=== PATIENT | male | born 1985 | race Caucasian/White ===

== ENCOUNTER 2023-06-13 09:40 | Outpatient (AMB) | payer MEDICAID, SELFPAY ==
--- NOTE | 2023-06-13 09:54 | MHC.AMNUTRGE ---
Intake VS Expanded 06/13/23 11:02 06/20/23 08:36 Height 5 ft 6 in 5 ft 6 in Weight 104 lb 0.7 oz 104 lb BMI 16.8 16.8 Intake Visit Reasons: Osteoporosis-CONFIRMED HPI Nutrition Presentation Details Pt presents for Nutrition Consult Pt on Jtube feeding with BMI at 16.8. Pt resides at [facility] and is accompanied by a staff Pt was referred by Dr. Minnie Serrano from [facility]. The Patient has cerebral palsy, non verbal, spastic quadriplegia, scoliosis, bronchopulmonary dysplasia , chronic GJ tube, chronic hypoxic respiratory failure due to aspiration, mixed incontinence. Pt has Aminata -Garcia syndrome with GI bleed, severe gastric dysmotility (information extracted from referring physician notes and notes from nutrition from [facility] on 03/25/23. Discussion via Telephone with Kim nurse from [facility] and paper note from [facility] the Pt is NPO due to risk of aspiration. Pt is getting his nutrition via J- tube as follows: Nutren 2.0 at 50 ml/hr for 20 hours. Pt is also getting 150 ml water flush every 2 hours (12 times a day) and 50 ml of water before and after each feeding via J-tube. Current feeding provides 2000 slim/day, 84 g of protein/d, total of 2490 ml of water/day (690 ml water from formula 1800 ml of water flushes/day) . Pt's weight hx wt in 02/07/2019 ([facility] notes) at 116 lbs on feedings : 2 slim HN at 50 ml/hr x 20 hr per day wt on 03/25/23 54.1 kg (119 lbs) ( nutrition notes from [facility] on bed scale) wt as per notes from [facility] 104.7 lbs on 06/04/23 on same 2 slim HN at 50 ml x20 hr per day Pt having recurrent clogged J-tube Nutrition Needs Calculation Weight 104 lb Estimated kcal needs (kcal/day) 1,844 (as per 11 kcal /cm (Pt 's Ht at 5'6 )) Estimated protein needs (gm/day) 57 (1-1.2 g/kg BW) Estimated fluid needs (mls/day) 2,040 (asper HoliaySegar) MYI-Trnodqk-PyVidalor Equation Height 5 ft 6 in Diagnosis Nutrition problem #1 other (GI Intolerance to ) As related to (etiology) #1 other (standard formula) As evidenced by (sign/symptom) #1 other (by gastric dysmotility, hx of GI bleed, low BMI at 16.8 ) Monitoring/Goals Monitoring/Goals details Switch to semi elemental formula Peptamen 1.5 and monitor weight gain Most Recent Diabetes Results: No Data to Display Assessment & Plan Assessment & Plan (1) Cerebral palsy: Comment: BMI at 16.8 Code(s): G80.9 - Cerebral palsy, unspecified Plan: Recommend switching to PEPTAMEN 1.5 (a semi elemental/peptide based formula) via J- Tube continuously Initial RATE of 35 ML /HR for 20 HR per day ( total of 700 ml/d) and 50 ml of water flushes every 2 hr as established (12 times a day) Advance by 10 ml per hour for 20 hours every 3 days to goal of 60 ml /hr for 20 hours/day (1200 ml/d) and advance water flushes by 10 ml every 2 hours (12 times/day ) to goal of 90 ml water flushes every 2 hours (12 times/day) Provide 30 ml of water via J Tube before and after each feeding. This will provide 1800 calories , 81.6 g protein, 2004 ml total water/d (924 ml water from formula and 1080 ml water flushes) Check for tolerance and monitor weight every 2 weeks Do not check residuals for J-Tube (2) Underweight: Code(s): R63.6 - Underweight Patient Instructions: Recommend switching to PEPTAMEN 1.5 (a semi elemental/peptide based formula) via J- Tube continuously . See Initiation instructions under Plan. Coding Level of Care Code Nutr Indiv Intake (75729) Diagnoses Cerebral palsy G80.9 Underweight R63.6 Time Spent (min) 30
[2023-06-13 11:02] VITALS: BMI 16.8
[2023-06-13 11:16] VITALS: BMI 16.8
== END 2023-06-13 10:13 | disposition home or self-care (01) ==
PROVIDERS: PCP Internal Medicine; Visit Provider Dietitian, Registered
DX: G80.9 Cerebral palsy, unspecified (principal); R63.6 Underweight

== ENCOUNTER → 2023-06-13 09:40 | Outpatient (BNVA) | payer MEDICARE, MEDICAID, SELFPAY | PROVIDERS: Visit Provider Dietitian, Registered | DX: G80.9 Cerebral palsy, unspecified (principal); R63.6 Underweight | CPT/HCPCS: 97802 ==

== ENCOUNTER 2023-12-04 11:14 | Outpatient (AMB) | payer MEDICARE, MEDICAID, SELFPAY ==
--- NOTE | 2023-12-04 11:21 | MHC.AMNUTRGE ---
Intake VS Expanded 12/04/23 11:43 Height 5 ft 6 in Weight 103 lb 0.2 oz BMI 16.6 Intake Visit Reasons: dysphagia/tube feeding status/CONFIRMED HPI Nutrition Presentation Details Pt presents for Nutrition follow up on Jtube feedings tolerance . Pt was referred by Dr. Minnie Serrano from [facility]. Pt is a resident of [facility] and is accompanied by a staff during this appt. Pt has hx of gastric dysmotility, hx of GI bleed Pt is currently on Peptamen 1.5 at 60 ml/hr for 20 hours a day via Jejunostomy tube Pt is also getting 50 ml water flushes before and after each feeding and whenever the feeding is interrupted. May get about 2000 ml water /day. Pt has Gtube placed and gets medications via G tube only. Staff reports Pt has no vomiting, has daily regular bowel movement. Pt 's skin looks radiant. Staff reports Pt has frequent urination, every 2-3 hours Pt appears to tolerate formula, with regular bowel movement, and weight has maintained, Staff reports no known wounds, ulcers, no vomiting Pt was previously on Nutren 2.0 at 50 ml/hr for 20 hr/d having bowel incontinence , BMI at 16.8 on 06/2023. and appears to tolerate peptamen 1.5 formula better, weight is maintaining , will need increase calories to promote weight gain Hx from previous appt 2022 Pt with hx of hypoxic respiratory failure due to aspiration. Pt has Aminata -Garcia syndrome with GI bleed, severe gastric dysmotility (information extracted from referring physician notes and notes from nutrition from [facility] on 03/25/23. Pt Consult Pt on Jtube feeding with BMI at 16.8. Pt resides at [facility] and is accompanied by a staff Pt was referred by Dr. Minnie Serrano from [facility]. Discussion via Telephone with nurse Kim from [facility] and paper note from [facility] the Pt is NPO due to risk of aspiration. Pt is getting his nutrition via J- tube as follows: Nutren 2.0 at 50 ml/hr for 20 hours. Pt is also getting 150 ml water flush every 2 hours (12 times a day) and 50 ml of water before and after each feeding via J-tube. Pt's weight hx wt in 02/07/2019 ([facility] notes) at 116 lbs on feedings : 2 slim HN at 50 ml/hr x 20 hr per day wt on 03/25/23 54.1 kg (119 lbs) ( nutrition notes from [facility] on bed scale) wt as per notes from [facility] 104.7 lbs on 06/04/23 on same 2 slim HN at 50 ml x20 hr per day Pt having recurrent clogged J-tube Assessment Assessment details Pt is currently getting Peptamen 1.5 total 1800 calories/day (1200 ML per day) . Pt weight has maintained at BMI 16.6 and per conversation with staff, Pt is having a daily regular bowel movement, no diarrhea. Pt will need higher calorie intake to promote weight gain [employer] vol of Peptamen 1.5 at 75 ml/hr for 20 hours (total of 1500 ml/day) Nutrition Needs Calculation Weight 103 lb (47 kg) Estimated kcal needs (kcal/day) 2,300 (current 1800 + 500 calories for wt gain) Estimated protein needs (gm/day) 56 (1.2-1.5 g of protein per kg BW (56-70g)) Estimated fluid needs (mls/day) 2,040 (as per Mulugeta Marcos ) Most Recent Diabetes Results: No Data to Display Assessment & Plan Assessment & Plan (1) Cerebral palsy: Comment: BMI at 16.8 (06/2023), BMI at 16.6 (11/2023) Code(s): G80.9 - Cerebral palsy, unspecified Plan: Continue on Peptamen 1.5 via Jtube and gradually increase volume as follows , assessing for tolerance and advancing to goal to promote weight gain: Day 1-2: Provide 50 ML water flush BEFORE and AFTER feeds, then run Peptamen 1.5 feeds at 65 ML X 20 HR/d (total of 1300 ML) Provide 940 ml additional water distributed throughout the day ( can be used for flushing J tube, G- tube and meds via Gtube) Day 3 Gaol: Provide 50 ML water flushes BEFORE and AFTER feeds, then run Peptamen 1.5 feeds at 75 ML X 20 HR (1500 ML/g) Provide 885 ml additional water throughout the day ( can be used for flushing J tube, G- tube and meds via G-tube) Check for GI tolerance, monitor weight, frequency of bowel movement, symptoms of dehydration This will provide 2300 calories/day, 102 g of protein, 2040 ml of water per day Do not check residuals for J-Tube (2) Underweight: Code(s): R63.6 - Underweight Plan: Continue on Peptamen 1.5 via Jtube and gradually increase volume as follows , assessing for tolerance and advancing to goal to promote weight gain: Day 1-2: Provide 50 ML water flush BEFORE and AFTER feeds, then run Peptamen 1.5 feeds at 65 ML X 20 HR/d (total of 1300 ML) Provide 940 ml additional water distributed throughout the day ( can be used for flushing J tube, G- tube and meds via Gtube) Day 3 Gaol: Provide 50 ML water flushes BEFORE and AFTER feeds, then run Peptamen 1.5 feeds at 75 ML X 20 HR (1500 ML/g) Provide 885 ml additional water throughout the day ( can be used for flushing J tube, G- tube and meds via G-tube) This will provide 2300 calories/day (1500 ML/D), 102 g of protein, 2040 ml of water per day, no fiber Do not check residuals for J-Tube Check for GI tolerance, monitor weight, frequency of bowel movement, symptoms of dehydration RECOMMEND MONITORING for Zinc def , B vitamin def, calcium, iron def Patient Instructions: See plan as above to increase calorie by gradually increasing volume. Next follow up will assess adding fiber to feeds Please forward nutrition labs results (H/H, Chol, iron, zinc, Ca, b vitamins) Coding Level of Care Code Nutr Indiv Subseq ([id number]) Diagnoses Cerebral palsy G80.9 Underweight R63.6 Time Spent (min) 30
[2023-12-04 11:43] VITALS: BMI 16.6
== END 2023-12-04 11:42 | disposition home or self-care (01) ==
PROVIDERS: PCP Internal Medicine; Visit Provider Dietitian, Registered
DX: G80.9 Cerebral palsy, unspecified (principal); R63.6 Underweight

== ENCOUNTER → 2023-12-04 11:14 | Outpatient (BNVA) | payer MEDICARE, MEDICAID, SELFPAY | PROVIDERS: PCP Internal Medicine; Visit Provider Dietitian, Registered | DX: G80.9 Cerebral palsy, unspecified (principal); R63.6 Underweight; Z71.3 Dietary counseling and surveillance; Z93.1 Gastrostomy status; Z68.1 Body mass index [BMI] 19.9 or less, adult | CPT/HCPCS: 97803 ==

== ENCOUNTER 2023-12-30 10:57 | Outpatient (AMB) | payer MEDICARE, MEDICAID, SELFPAY ==
--- NOTE | 2023-12-30 10:51 | A.OFFVIS_ITS ---
Intake VS Expanded 12/31/23 11:03 Height 5 ft 6 in Weight 106 lb 0.2 oz BMI 17.1 Intake Visit Reasons: tube feeding tolerance/Telephone call/CONFIRMED HPI Nutrition Presentation Details MNT f/u for tube feeding tolerance via telephone visit Pt was previously on Peptamen 1.5 via J tube at 60 ml x 20 hr/day (total 1200 ML/day) providing 1800 calories per day and 81 g of protein, tolerating formula with improvement in lessening diarrhea and maintaining weight but not gaining weight. The rate of formula was increased to 75 ml x 20 hr/day to promote weight gain and per nursing Pt is doing better and gradually gaining weight. Nursing reports: Pt is on Peptamen 1.5 feeds at 75 ML X 20 HR (1500 ML/g) via J- tube Getting 50 ML water flushes BEFORE and AFTER feeds and add itional 885 ml additional water distributed throughout the day ( can be used for flushing J tube, G- tube and meds via G-tube ) Pt tolerating formula well, no concerns expressed at this time. Weight is monitored weekly and weight gain progress is a s follows: 12/09/2023 at 103.8 lbs 12/16/2023 at 104.2 lbs 12/23/2023 at 105.7 lbs 12/30/2023 at 106.2 lbs No concerns expressed at this time. Most Recent Diabetes Results: No Data to Display Assessment & Plan Assessment & Plan (1) Cerebral palsy: Comment: BMI at 16.8 (06/2023), BMI at 16.6 (11/2023), BMI at 17.1 on 12/2023) Code(s): G80.9 - Cerebral palsy, unspecified Plan: Continue on Peptamen 1.5 via Jtube as established Provide 50 ML water flushes BEFORE and AFTER feeds, then run Peptamen 1.5 feeds at 75 ML X 20 HR (1500 ML/d) Provide 885 ml additional water throughout the day ( can be used for flushing J tube, G- tube and meds via G-tube), not exceed 125 ml/hour via Jtube This is providing 2300 calories/day, 102 g of protein, 2040 ml of water per day Check for GI tolerance, monitor weight, frequency of bowel movement, symptoms of dehydration Do not check residuals for J-Tube (2) Underweight: Comment: BMI at 16.8 (06/2023), BMI at 16.6 (11/2023), BMI at 17.1 on 12/2023) Code(s): R63.6 - Underweight Plan: Continue on Peptamen 1.5 via Jtube as established Provide 50 ML water flushes BEFORE and AFTER feeds, then run Peptamen 1.5 feeds at 75 ML X 20 HR (1500 ML/d) Provide 885 ml additional water throughout the day ( can be used for flushing J tube, G- tube and meds via G-tube) , not to exceed 125 ml/hr via Jtube This provides 2300 calories/day (1500 ML/D), 102 g of protein, 2040 ml of water per day, no fiber , with gradual weight gain Do not check residuals for J-Tube Check for GI tolerance, monitor weight, frequency of bowel movement, symptoms of dehydration RECOMMEND MONITORING for Zinc def , B vitamin def, calcium, iron def Patient Instructions: Continue feeds as established : Peptamen 1.5 feeds at 75 ML X 20 HR (1500 ML/d) via J- tube Provide 50 ML water flushes BEFORE and AFTER feeds Provide 885 ml additional water throughout the day ( can be used for flushing J tube, G- tube and meds via G-tube) , not to exceed 125 ml/hr via Jtube Continue monitoring weight , will follow up in 3 months on weight progress. Telehealth Telehealth Telehealth Platform: Telephone Location of provider rendering services: practice address Location of patient: address on file Patient Identification confirmed using: Name, : Yes Telehealth method: voice only Patient verbally consented to treatment: Yes Patient verbally consented to billing insurance company: Yes Patient informed of any privacy concerns related to visit: Yes Minutes spent on Phone/Video with Pt.: 15 Coding Level of Care Code Nutr Indiv Subseq ([id number]) Diagnoses Cerebral palsy G80.9 Underweight R63.6 Time Spent (min) 20
[2023-12-31 11:03] VITALS: BMI 17.1
== END 2023-12-30 11:35 | disposition home or self-care (01) ==
LOC: HO.ENCR 10:57
PROVIDERS: PCP Internal Medicine; Visit Provider Dietitian, Registered
DX: G80.9 Cerebral palsy, unspecified (principal); R63.6 Underweight

== ENCOUNTER → 2023-12-30 10:57 | Outpatient (BNVA) | payer MEDICARE, MEDICAID, SELFPAY | PROVIDERS: PCP Internal Medicine; Visit Provider Dietitian, Registered | DX: G80.9 Cerebral palsy, unspecified (principal); R63.6 Underweight; Z68.1 Body mass index [BMI] 19.9 or less, adult | CPT/HCPCS: 97803 ==

== ENCOUNTER 2024-04-06 11:09 | Outpatient (AMB) | payer MEDICARE, MEDICAID, SELFPAY ==
[2024-04-06 11:33] VITALS: BMI 17.4
--- NOTE | 2024-04-06 11:33 | A.OFFVIS_ITS ---
VS Expanded 04/06/24 11:33 Height 5 ft 6 in Weight 108 lb BMI 17.4 Intake Visit Reasons: J tube feedings/CONFIRMED Medication List - Last Reconciled 04/09/[address], LDN albuterol sulfate 1.25 mg inhalation TID PRN baclofen 5 mg feeding tube TID cholecalciferol (vitamin D3) 1,000 units feeding tube DAILY docusate sodium 100 mg feeding tube TID omeprazole-sodium bicarbonate 40-1,680 mg 1 packet feeding tube DAILY polyethylene glycol 3350 (Miralax) 17 grams feeding tube DAILY potassium chloride 20 mEq feeding tube DAILY Nutrition Presentation Details: Pt presents for MNT f/u for underweight with cerebral palsy. Pt is NPO on nutritional feeds via [employer]. [facility]. Pt is NPO due to aspiration and is getting 1500 ml/day of Peptamen 1.5 , via Jejunostomy tube and has Gtube for medications. Pt is none verbal and none mobile Pt gaining slow ,but gradual weight on current nutritional feeds, weight gain from 103 lbs in 11/2023 to 108 lbs in 03/2024. Pt appears well hydrated , staff reports no vomiting per his knowledge, no signs of swelling Staff unaware regarding bowel movements- Noted, per notes, Pt is on miralax 17 g daily and is held if Pt having diarrhea or if having more than 1 stool per day and also on Colace which is held if Pt having lose stools NOTE- Current nutritional formula has no fiber Nutritional Feeds Hx 03/2024 currently on Peptamen 1.5 @75 ml/hr for 20 hr via Jtube, + 2000 ml water/day with weight at 108 lbs, staff reports good tolerance 12/2022, via telephone visit: Peptamen 1.5 @ 75 ml/hr for 20 hr via Jtube + 2000 water/day , weight at 106 lbs 11/2023 Peptamen 1.5 @60 ml/hr for 20 hr via Jtube, + 2000 ml water/day, weight at 103 lbs Pt tolerating well, reports symptoms of diarrhea have lessened, but no weight gain 06/2023 Pt on Nutren 2.0 @ 50 ml/hr for 20 hrs, + 1800 ml/water per day ,increased diarrhea, weight at 104 lbs . Was recommended to switch from elemental formula to semi elemental peptide formula (Peptamen 1.5) for better absorption BS Monitoring Most Recent Diabetes Results: No Data to Display Assessment Assessment details: Pt appears to tolerate Peptamen 1.5 at 75 ml/hr for 20 hr/day with 5 lbs of gradual weight gain since 11/2023 Current formula provides 2250 kcal/day , 102 g protein/day. Formula does not contain fiber. May recommend gradually adding fiber to the formula, starting with 3 grams of fiber daily, monitoring tolerance and gradually increasing to 9 g/day depending on tolerance . Nutrition Needs Calculation Weight: 108 lb (49 kg bw) Estimated kcal needs (kcal/day): 2,250 (11 kcal /cm= 1844 + 500 kcal to promote weigh gain) Estimated protein needs (gm/day): 73 (1.2 -1.5 g/kg bw = 59-73 g) Estimated fluid needs (mls/day): 2,040 (as per Mulugeta Marcos ) [facility] Medical History (Updated 04/09/24 @ 14:55 by Sandy Talley, RD, LDN) Cerebral palsy Assessment & Plan Assessment & Plan (1) Underweight: Comment: Pt has cerebral palsy. Pt's BMI at 16.8 (06/2023), BMI at 16.6 (11/2023), BMI at 17.1 on 12/2023), BMI at 17.4 on 03/2024 Code(s): R63.6 - Underweight Category: Medical Plan: Continue on Peptamen 1.5 via Jtube as established: 50 ML water flushes BEFORE and AFTER feeds, then run Peptamen 1.5 feeds at 75 ML X 20 HR (1500 ML/d) Provide 885 ml additional water throughout the day ( can be used for flushing J tube, G- tube and meds via G-tube) , not to exceed 125 ml/hr via Jtube This provides 2250 calories/day (1500 ML/D), 102 g of protein, 2040 ml of water per day, no fiber , with gradual weight gain Do not check residuals for J-Tube Check for GI tolerance, monitor weight, frequency of bowel movement, symptoms of dehydration RECOMMEND MONITORING for Zinc def , B vitamin def, calcium, iron def RECOMMEND Gradually Adding fiber to the feeds starting with 3 grams of fiber per day and gradually increasing as per tolerance up to 9- g per day. Miralax/colace may need to be adjusted depending on Pt's tolerance to the fiber supplement. Recommend Prescribing fiber supplement (nutrisource fiber supplement) to mix 1 tablespoon with 120 ml of water once a day (this provides 3 g of fiber per day) for 1 week, monitor tolerance and advance to 1 tablespoon of fiber supplement mixed with 120 ml water twice a day (total of 6 grams of fiber) the following week. The 3rd week, if patient is tolerating fiber well, increase fiber to 3 tablespoons per day, each mixed with 120 ml of water . (2) Cerebral palsy: Code(s): G80.9 - Cerebral palsy, unspecified Category: Medical Plan: Coding Level of Care Code Nutr Indiv Subseq ([id number]) Diagnoses Underweight R63.6 Cerebral palsy G80.9 Time Spent (min) 30
== END 2024-04-06 11:58 | disposition home or self-care (01) ==
PROVIDERS: PCP Internal Medicine; Visit Provider Dietitian, Registered
DX: R63.6 Underweight (principal); G80.9 Cerebral palsy, unspecified

== ENCOUNTER → 2024-04-06 11:09 | Outpatient (BNVA) | payer MEDICARE, MEDICAID, SELFPAY | PROVIDERS: PCP Internal Medicine; Visit Provider Dietitian, Registered | DX: R63.6 Underweight (principal); G80.9 Cerebral palsy, unspecified; Z68.1 Body mass index [BMI] 19.9 or less, adult | CPT/HCPCS: 97803 ==

== ENCOUNTER 2024-07-13 13:15 | Outpatient (AMB) | payer MEDICARE, MEDICAID, SELFPAY ==
--- NOTE | 2024-07-13 11:24 | A.OFFVIS_ITS ---
VS Expanded 07/13/24 11:42 Height 5 ft 6 in Weight 109 lb 0.8 oz BMI 17.6 Intake Visit Reasons: discuss fiber supplement tolerance/CONFIRMED Nutrition Presentation Details: This is Nutrition f/u telephone visit with nursing Following up on recommendation to add fiber supplement and tolerance since the current formula has no fiber. Per nursing no fiber supplements have been prescribed. Pt is doing well with soft bowel movements , weight today at 109.8 lbs , gradually gaining weight. Pt is on miralax and colace to prevent constipation. Pt hx: Underweight with cerebral palsy. Pt is NPO on nutritional feeds via [employer]. Pt's PCP is Dr. Minnie Serrano from [facility] Pt' current formula : Peptamen 1.5 @75 ml/hr for 20 hr via Jtube, + 2000 ml water/day This provides 2250 calories/day (1500 ML/D), 102 g of protein, 2040 ml of water per day, no fiber , with gradual weight win BS Monitoring Most Recent Diabetes Results: No Data to Display [facility] Medical History (Updated 07/13/24 @ 11:57 by Sandy Talley, RD, LDN) Cerebral palsy Assessment & Plan Assessment & Plan (1) Underweight: Comment: Pt has cerebral palsy. Pt's BMI at 16.8 (06/2023), BMI at 16.6 (11/2023), since change in formula: BMI at 17.1 on 12/2023), BMI at 17.4 on 03/2024, 17.4 (07/2024) Code(s): R63.6 - Underweight Category: Medical Plan: PCP: consider Adding fiber during the day since current formula has no fiber: Consider starting with 2-3 grams of fiber per day and gradually increasing as per tolerance up to 9- g per day. Miralax/colace will need to be adjusted depending on Pt's tolerance to the fiber supplement. Recommend Prescribing fiber supplement (nutrisource fiber supplement) to mix 1 tablespoon (3 g of fiber) with 120 ml of water once a day or 1 tbsp of metamucil (2 g of fiber) mixed with 120 mil of water a day . Try 1 tbsp a day for one to 2 weeks (this provides 2-3 g of fiber), monitor tolerance ( bloating, discomfort, diarrhea ) and advance to 1 tablespoon of fiber supplement mixed with 120 ml water twice a day (total of 4- 6 grams of fiber ) the following week for 2 weeks. The 5 week, increase fiber to 3 tablespoons per day, each mixed with 120 ml of water (for a total 6-9 g of fiber per day). Increase water to 240 ml with fiber supplement if noticing Pt is having constipation with the addition of fiber. RECOMMEND MONITORING for Zinc def , B vitamin def, calcium, iron def Continue formula Peptamen 1.5 via Jtube as established: 50 ML water flushes BEFORE and AFTER feeds, then run Peptamen 1.5 feeds at 75 ML X 20 HR (1500 ML/d) Provide 885 ml additional water throughout the day ( can be used for flushing J tube, G- tube and meds via G-tube) , not to exceed 125 ml/hr via Jtube This provides 2250 calories/day (1500 ML/D), 102 g of protein, 2040 ml of water per day, no fiber , with gradual weight gain Do not check residuals for J-Tube Check for GI tolerance, monitor weight, frequency of bowel movement, symptoms of dehydration (2) Cerebral palsy: Code(s): G80.9 - Cerebral palsy, unspecified Category: Medical Plan: Coding Level of Care Code Nutr Indiv Subseq ([id number]) Diagnoses Underweight R63.6 Cerebral palsy G80.9 Time Spent (min) 20
[2024-07-13 11:42] VITALS: BMI 17.6
== END 2024-07-13 15:27 | disposition home or self-care (01) ==
LOC: HO.ENCR 13:15
PROVIDERS: PCP Internal Medicine; Visit Provider Dietitian, Registered
DX: R63.6 Underweight (principal); G80.9 Cerebral palsy, unspecified

== ENCOUNTER → 2024-07-13 13:15 | Outpatient (BNVA) | payer MEDICARE, MEDICAID, SELFPAY | PROVIDERS: PCP Internal Medicine; Visit Provider Dietitian, Registered | DX: R63.6 Underweight (principal); G80.9 Cerebral palsy, unspecified; Z71.3 Dietary counseling and surveillance; Z68.1 Body mass index [BMI] 19.9 or less, adult | CPT/HCPCS: 97803 ==

== ENCOUNTER 2024-10-07 10:39 | Outpatient (AMB) | payer MEDICARE, MEDICAID, SELFPAY ==
[2024-10-07 11:26] VITALS: BMI 17.9
--- NOTE | 2024-10-07 11:26 | MHC.AMNUTRGE ---
VS Expanded 10/07/24 11:26 Height 5 ft 6 in Weight 111 lb BMI 17.9 Intake Visit Reasons: Jtube feeding Nutrition Presentation Details: Pt presents for MNT f/u to asses tolerance on fiber supplement Pt presents with Home staff during this appointment Per staff, no concerns , Pt tolerating feedings well, no constipation/diarrhea and Pt has gradual weight gain with weight at 111.8 lbs on 10/05/24. Pt has pending appt with PCP on November 2024 at which time will evaluate fiber supplement recommendation (Pt currently on colace and miralax with soft bowel movements) Pt hx: Underweight with cerebral palsy. Pt is NPO on nutritional feeds via [employer]. Pt's PCP is Dr. Minnie Serrano from [facility] Pt' current formula : Peptamen 1.5 @75 ml/hr for 20 hr via MtoVtube, + 2000 ml water/day This provides 2250 calories/day (1500 ML/D), 102 g of protein, 2040 ml of water per day, no fiber , with gradual weight gain, bmi at 17.9 (09/2024) from 16.6 (11/2023) BS Monitoring Most Recent Diabetes Results: No Data to Display [facility] Medical History (Updated 10/07/24 @ 11:58 by Sandy Talley, RD, LDN) Cerebral palsy Assessment & Plan Assessment & Plan (1) Underweight: Comment: Pt has cerebral palsy. Pt's BMI at 16.8 (06/2023), BMI at 16.6 (11/2023), since change in formula: BMI at 17.1 on 12/2023), BMI at 17.4 on 03/2024, 17.4 (07/2024) , 17.9 (09/2024) Code(s): R63.6 - Underweight Category: Medical Plan: Recommend for MD to consider Adding fiber since current formula has no fiber: Consider starting with 2-3 grams of fiber per day and gradually increasing as per tolerance up to 9- g per day. Miralax/colace will need to be adjusted depending on Pt's tolerance to the fiber supplement. Recommend fiber supplement (nutrisource fiber supplement) to mix 1 tablespoon (3 g of fiber) with 120 ml of water once a day or 1 tbsp of metamucil (2 g of fiber) mixed with 120 mil of water a day . Try 1 tbsp a day for one to 2 weeks (this provides 2-3 g of fiber), monitor tolerance ( bloating, discomfort, diarrhea ) and advance to 1 tablespoon of fiber supplement mixed with 120 ml water twice a day (total of 4- 6 grams of fiber ) the following week for 2 weeks. The 5 week, increase fiber to 3 tablespoons per day, each mixed with 120 ml of water (for a total 6-9 g of fiber per day). Increase water to 240 ml with fiber supplement if noticing Pt is having constipation with the addition of fiber. RECOMMEND MONITORING for Zinc def , B vitamin def, calcium, iron def Continue formula Peptamen 1.5 via Jtube as established: 50 ML water flushes BEFORE and AFTER feeds, then run Peptamen 1.5 feeds at 75 ML X 20 HR (1500 ML/d) Provide 885 ml additional water throughout the day ( can be used for flushing J tube, G- tube and meds via G-tube) , not to exceed 125 ml/hr via Jtube This provides 2250 calories/day (1500 ML/D), 102 g of protein, 2040 ml of water per day, no fiber , with gradual weight gain. Do not check residuals for J-Tube Check for GI tolerance, monitor weight, frequency of bowel movement, symptoms of dehydration Will follow up in 3-6 months and reassess calorie needs (2) Cerebral palsy: Code(s): G80.9 - Cerebral palsy, unspecified Category: Medical Plan: Plan as above Coding Level of Care Code Nutr Indiv Subseq (61949) Diagnoses Underweight R63.6 Cerebral palsy G80.9
--- OUTSIDE RECORDS SUMMARY | 2024-10-07 12:44 | XMS_ITS | Clinical Summary ---
Author Organization [address] Address [address] [place] [phone] Phone Care Team Providers Care Marine Reporter Name Role Phone Krys Serrano MD Primary Care Provider [phone] Allergies No known active allergies Medications Medication Sig Dispensed Refills Start Date End Date Status bisacodyL (DULCOLAX) [address] 1 Suppository rectally as needed (FOR CONSTIPATION OR NO BOWEL MOVEMENT IN 3 DAYS). 02/13/2022 Active sodium phosphate (Aupdv-Fy-Tct Enema) 19-7 gram/[address] 1 Enema rectally as needed (If no bowel movement for 4 days, or if no results after 24 hours from Bisacodyl suppository. If no BM x 24 hours after administering enema, notify ) 08/30/2022 Active albuterol 2.5 mg /3 mL (0.083 %) nebulizer solution Take 1 Vial by nebulization 3 times daily 02/24/2024 Active omeprazole 2 mg/mL in sodium bicarbonate 20 ml via G tube once daily 11/27/2023 Active denosumab (Prolia) 60 mg/mL syringe syringe Inject 1 mL (60 mg total) under the skin 1 (one) time. 08/09/2023 Active docusate (COLACE) 50 mg/5 mL liquid TAKE 10 ML VIA G TUBE 3 TIMES DAILY NEEDED FOR CONSTIPATION. HOLD WITH LOOSE STOOLS. 03/16/2024 Active metoclopramide (REGLAN) 5 mg/5 mL solution TAKE 5ML VIA G TUBE 3 TIMES DAILY NEEDED FOR NAUSEA AND VOMITTING. 02/19/2024 Active ergocalciferol, vitamin D2, (ERGOCALCIFEROL, VIT D2,, BULK, MISC) Ergocalciferol 200 MCG/ML Solution 1,000 Units by Gastric Tube route daily. GIVE 5 DROPS (1000 UNITS) VIA G-TUBE IN THE MORNING - Gastric Tube 12/17/2023 Active guaiFENesin 200 mg/5 mL liquid 5 mL by Gastrostomy Tube route every 4 hours as needed for Other (cough). - Gastrostomy Tube 12/17/2023 Active clotrimazole (LOTRIMIN) 1 % cream APPLY A THIN FILM TOPICALLY TWICE DAILY AROUND G-TUBE SITE. 10/29/2023 Active acetaminophen (TYLENOL) 160 mg/5 mL liquid 20 mL by Gastric Tube route every 8 hours as needed for Fever or Pain. (temp 100.2 or higher, no more than 3250 mg/24 hrs. notify nursing if temp over 100 despite use of antipyretic). - Gastric Tube 09/27/2023 Active aluminum chloride (Drysol Dab-O-Matic) 20 % external solution APPLY TOPICALLY TO SOULES OF FEET THREE TIMES A WEEK. 08/14/2023 Active neomycin-bacitracnZ n-polymyxnB 3.5-500-10,000 lx-dgql-rjzu ointment Apply 1 Film topically 2 times daily as needed (as needed). 08/14/2023 Active baclofen (FIRST-BACLOFEN) 5 mg/mL suspension Take 2 mL (10 mg total) by mouth 3 (three) times a day. 05/30/2023 Active bacitracin 500 unit/gram ointment Wash superficial wound with soap and water. Apply small amount to affected area 2xday prn. Cover with Band-Aid or sterile gauze until healed. 12/15/2021 Active nystatin (MYCOSTATIN) ointment APPLY SMALL AMOUNT TOPICALLY TWICE DAILY NEEDED TO CRACKLY/ PEELING SKIN AROUND TOE AND GROIN AREA. 04/03/2023 Active baclofen (LioresaL) 2,000 mcg/mL intrathecal solution by intrathecal route. Act chris carbamide peroxide (Ear Drops, carbamide peroxide,) 6.5 % otic solution INSTILL 4 DROPS INTO AFFECTED EARS TWICE DAILY NEEDED FOR FOUR DAYS THEN FLUSH EARS WITH WATER 05/04/2022 Active bacitracin zinc-polymyxin B 500-10,000 unit/gram bandage Apply 1 film topically 2 (two) times a day. 02/09/2022 Active feeder container (FEEDING TUBES - BAGS MISC) 1 Units by Does not apply route See Admin Instructions. FLUSH FEEDING TUBE EVERY 2 HOURS. 04/05/2020 Active feeder container (FEEDING TUBES - BAGS MISC) Feeding Tubes - Sets (ENTERALITE INFINITY PUMP SET) Misc 1 Each by Does not apply route continuous. 65 ml per hour for 21 hours 03/09/2016 Active Oxygen Therapy (O2) gas Inhale 2 L by mouth continuously. Oxygen Historical (HISTORICAL OXYGEN) Cont. / Life Supply Active potassium chloride 20 mEq/15 mL solution TAKE 15ML VIA G TUBE DAILY. 450 mL 2 08/04/2024 Active polyethylene glycol (MIRALAX) 17 gram packet Take 17 g by mouth 1 (one) time each day. 17 gram dissolved in water via G tube daily. Hold if he has Diarrhea or more than 1 stool a day. . 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 Idiopathic osteoporosis 03/13/2006 Overview (06/14/2024): bone density 06/20/07; Fosamax [id number]; Prolia 04/29/18; 05/11/20 Asthma 03/13/2006 Constipation 03/13/2006 Overview (06/14/2024): Mixed incontinence 03/13/2006 Overview (06/14/2024): rey sanchez during day time.diaper briefs for stool Profound intellectual disabilities 03/13/2006 Overview (06/14/2024): lives in a [facility] Recurrent aspiration pneumonia 03/13/2006 Encounters Date Type Department Care Team Description 08/18/2024 Telephone Adult Medicine [phone] [place] [address] Krys Serrano MD Medication Problem 08/04/2024 10:30 AM EST Office Visit Pulmonolgy - [facility] [address] [place] [address] Ginger Santana NP Pre-procedural respiratory examination (Primary Dx); Bronchopulmonary dysplasia (CMS/HCC); Mild persistent asthma without complication; Chronic hypoxemic respiratory failure (CMS/HCC); Bulla of lung (CMS/HCC); Recurrent aspiration pneumonia (CMS/HCC); Profound intellectual disabilities 07/13/2024 Telephone [phone] [place] [address] Radha Hairston, RN prolia from Last 3 Months Immunizations Name Administration Dates Next Due DWbE-YAN-OIU (Pentacel) 2mo to less than 5yo 05/10/2006,12/08/2005,11/07/2005 Influenza Quadravalent, MDCK , 0.5ml, preservative free (Flucelvax) 6mo and older 08/06/2023,09/26/2021,06/22/2020 Influenza Quadravalent, MDCK , 0.5ml, with preservative (Flucelvax) 6mo and older 06/29/2019,06/19/2017 Influenza trivalent, 0.5mL ( Fluzone High-dose) 65yo and older 06/12/2016,05/25/2010,06/10/2009 Influenza trivalent, with pr eservative (Fluzone; Afluria) 6mo and older 11/15/2020,06/29/2018,06/30/2008,08/05 MMR, measles mumps and rubel la Live (Priorix; M-M-R II) 12mo and older 03/19/1996 Meningococcal Polysaccharide 11/07/2002 Moderna SARS-CoV-2 COVID-19, mRNA, LNP-S, preservative free 11/27/2020,11/06/2020 PPD Test 04/29/2019, 6,03/28/2015,06/07,09/27/2011,08/24/2010,07/22/2009 ,06/17/2008,03/18/2007,11/14/2005 Pneumococcal polysaccharide 23 valent (Pneumovax 23) 2yo and older 08/18/2014,12/03/2002 Td Tetanus diptheria (Tdvax) 7yo and older 04/11/2017 Tdap Tetanus diptheria acell ular pertussis (Boostrix; Adacel) 7yo and older 04/11/2017,03/18/2007 Surgical History Surgery Date Site/Laterality Comments OTHER SURGICAL HISTORY PROCEDURE: GASTROSTOMY TUBE W/RING EACH UPPER GASTROINTESTINAL ENDOSCOPY 04/2019 PROCEDURE: [place] UPPER GI ENDOSCOPY PERFORMED; COMMENT: Jordyn; upper GI bleeding, gastric ulcer adjacent to gastrostomy tube. 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 DX:Gallbladd er anomaly Family History Medical History Relation Name Comments Diabetes Father HTN, Lipids Diabetes Mother HTN, Lipids Relation Name Status Comments Father Alive very little det ail on chart,not sure Mother Alive Social History Tobacco Use Types Packs/Day Years Used Date Smoking Tobacco: Never Smokeless Tobacco: Never Tobacco Cessation:Counseling Given: Not Answered Alcohol Use Standard Drinks/Week Comments No 0 (1 standard drink = 0.6 oz pur e alcohol) Sex and Gender Information Value Date Recorded Sex Assigned at Not on file Gender Identity Not on file Sexual Orientation Not on file Job Start Date Occupation Industry Not on file Not on file Not on file Obstetrics History Last Filed Vital Signs Vital Sign Reading Time Taken Comments Blood Pressure 140/90 08/04/2024 10:42 AM EST Pulse 109 08/04/2024 10:42 AM EST Temperature 36.6 ??C (97.8 ??F) 08/04/2024 10:[address] Respiratory Rate 12 08/04/2024 10:42 AM EST Oxygen Saturation 95% 08/04/2024 10:42 AM EST Inhaled Oxygen Concentration - - Weight 47.6 kg (105 lb) 12/17/2023 10:38 AM EDT Height 170.2 cm (5' 7 ) 05/01/2024 10:35 AM EDT Body Mass Index 16.45 12/17/2023 10:38 AM EDT Plan of Treatment Upcoming Encounters Date Type Department Care Team (Late st Contact Info) Description 11/23/2024 10:30 AM EDT Office Visit Adult Medicine [facility] [address] [place] [phone] Alf Richardson PA [address] [place] [address] 08/04/2025 10:30 AM EST Office Visit Pulmonol - [facility] [address] [facility] [address] [place] [phone] Ginger Santana NP [address] [address] [place] [address] Health Maintenance Due Date Last Done Comments Hepatitis B Vaccines (1 of 3 - 19+ 3-dose series) 2002 IPV Vaccines (3 of 3 - Adult catch-up series) 11/07/2006 05/10/2006, 12/08/2005, 11/07/2005 Pneumococcal Vaccine: Pediatrics (0 to 5 Years) and At-Risk Patients (6 to 64 Years) (2 of 2 - PCV) 08/18/2015 08/18/2014, 12/03/2002 Depression Screening 08/18/2022 HIV Screening 08/18/2022 Medicare Annual Wellness Visit 08/18/2022 Social Influencers of Health Screening 08/18/2022 COVID-19 Vaccine (7 - season) 2024 09/18/2023, 09/27/2022, 10/26/2021, Additional history exists Influenza Vaccine (#1) 2024 , 08/06/2023, 09/27/2022, Additional history exists DTaP,Tdap,and Td Vaccines (7 - Td or Tdap) 04/11/2027 04/11/2017, 04/11/2017, 03/18/2007, Additional history exists Cholesterol Screening (Lipid Panel) 08/14/2028 08/14/2023 MMR Vaccines Completed 03/19/1996 Meningococcal ACWY Vaccine Aged Out 11/07/2002 N o longer eligible based on patient's age to complete this topic HIB Vaccines Aged Out 05/10/2006, 09/2005, 12/08/2005, Additional history exists No longer eligible based on patient's age to complete this topic Hepatitis C Screening Completed 10/17/2017 HPV Vaccines Aged Out No longer eligi ble based on patient's age to complete this topic Hepatitis A Vaccines Aged Out No long er eligible based on patient's age to complete this topic RSV Immunization Patients Under 20 months Aged Out No longer eligible based on patient's age to complete this topic Varicella Vaccines Aged Out No longer eligible based on patient's age to complete this topic Procedures Procedure Name Priority Date/Time Associated Diagnosis Comments BASIC METABOLIC PANEL Routine 07/13/2024 9:46 AM EST Idiopathic osteoporosis VITAMIN D 25 HYDROXY Routine 07/13/2024 9:46 AM EST Idiopathic osteoporosis LIPID PANEL Routine 08/14/2023 HM HEPATITIS C SCREENING Routine 10/17/2017 from Last 3 Months or Most Recently Relevant to Health Maintenance Results * Vitamin D 25 hydroxy (07/13/2024 9:46 AM EST) Vit D, 25-Hydroxy 59.4 30.0 - 80.0 ng/mL LAB CHEMISTRY METHOD 07/13/2024 12:51 PM EST [facility] Blood Venous blood specimen / Unknown Venipuncture / Unknown 07/13/2024 9:46 AM EST 07/13/2024 10:42 AM EST Anne HILLIARD LAB BLOOD ORDERABLES [facility] [address] [place] [address], * (ABNORMAL) Basic metabolic panel (07/13/2024 9:46 AM EST) Sodium 149(H) 133 - 145 mmol/L LAB CHEMISTRY METHOD 07/13/2024 1:05 PM [facility] Potassium 4.2 3.5 - 5.5 mmol/L LAB CHEMISTRY METHOD 07/13/2024 1:05 PM [facility] Chloride 115(H) 96 - 110 mmol/L LAB CHEMISTRY METHOD 07/13/2024 1:05 PM [facility] CO2 32 21 - 32 mmol/L LAB CHEMISTRY METHOD 07/13/2024 1:05 PM [facility] Anion Gap 2(L) 3 - 11 LAB CHEMISTRY METHOD 07/13/2024 1:05 PM [facility] Glucose 89 70 - 100 mg/dL LAB CHEMISTRY METHOD 07/13/2024 1:05 PM [facility] BUN 23 5 - 25 mg/dL LAB CHEMISTRY METHOD 07/13/2024 1:05 PM [facility] Creatinine 0.51(L) 0.70 - 1.30 mg/dL LAB CHEMISTRY METHOD 07/13/2024 1:05 PM [facility] eGFR 131 >=60 mL/min/1. 73m2 LAB CHEMISTRY METHOD 07/13/2024 1:05 PM [facility] Comment:Calculation based on the??Chronic Kidney Disease Epidemiology Collaboration (CKD-EPI) equation refit??without adjustment for race. BUN/Creatinine Ratio 45.1 LAB CHEMISTRY METHOD 07/13/2024 1:05 PM EST [facility] Calcium 9.4 8.5 - 10.5 mg/dL LAB CHEMISTRY METHOD 07/13/2024 1:05 PM EST [facility] Blood Venous blood specimen / Unknown Venipuncture / Unknown 07/13/2024 9:46 AM EST 07/13/2024 10:42 AM EST Anne HILLIARD LAB BLOOD ORDERABLES [facility] [address] [place] [address], * Lipid panel (08/14/2023) Pathologist [facility] LDL/HDL Ratio 2 0 - 4 Triglycerides 85 0 - 150 mg/dL Cholesterol 134 0 - 200 mg/dL HDL 58 40 mg/dL LDL Cholesterol 59 0 - 100 mg/dL Blood Venous blood specimen / Unknown Historical Provider LAB BLOOD ORDERAB LES * Hepatitis C Screening (10/17/2017) [facility] Hepatitis C Screening abstracted Historical Provider MD BARRINGTON Castro from Last 3 Months or Most Recently Relevant to Health Maintenance Advance Directives Documents on File Type Date Recorded Patient Machine Gunner Expl anation Health Care Decision (hx) 06/06/2021 AD STEPHENS DIRECTIVE Health Care Decision (hx) 06/06/2021 AD STEPHENS DIRECTIVE Health Care Decision (hx) 06/06/2021 AD STEPHENS DIRECTIVE Health Care Decision (hx) 06/06/2021 AD STEPHENS DIRECTIVE Health Care Decision (hx) 06/06/2021 AD STEPHENS DIRECTIVE Health Care Decision (hx) 06/06/2021 AD STEPHENS DIRECTIVE Health Care Decision (hx) 06/06/2021 AD STEPHENS DIRECTIVE Health Care Decision (hx) 06/06/2021 AD STEPHENS DIRECTIVE Health Care Decision (hx) 06/06/2021 AD STEPHENS DIRECTIVE Health Care Decision (hx) 06/06/2021 AD STEPHENS DIRECTIVE Health Care Decision (hx) 06/06/2021 AD STEPHENS DIRECTIVE Health Care Decision (hx) 06/06/2021 AD STEPHENS DIRECTIVE Health Care Decision (hx) 06/06/2021 AD STEPHENS DIRECTIVE Health Care Decision (hx) 06/06/2021 AD STEPHENS DIRECTIVE Health Care Decision (hx) 06/06/2021 AD STEPHENS DIRECTIVE Health Care Decision (hx) 06/06/2021 AD STEPHENS DIRECTIVE Health Care Decision (hx) 06/06/2021 AD STEPHENS DIRECTIVE Health Care Decision (hx) 06/06/2021 AD STEPHENS DIRECTIVE Health Care Decision (hx) 06/06/2021 AD STEPHENS DIRECTIVE Health Care Decision (hx) 06/06/2021 AD STEPHENS DIRECTIVE Health Care Decision (hx) 06/06/2021 AD STEPHENS DIRECTIVE Health Care Decision (hx) 06/06/2021 AD STEPHENS DIRECTIVE Health Care Decision (hx) 06/06/2021 AD STEPHENS DIRECTIVE Health Care Decision (hx) 06/06/2021 AD STEPHENS DIRECTIVE Health Care Decision (hx) 06/06/2021 AD STEPHENS DIRECTIVE Health Care Decision (hx) 06/06/2021 AD STEPHENS DIRECTIVE Health Care Decision (hx) 06/06/2021 AD STEPHENS DIRECTIVE Health Care Decision (hx) 06/06/2021 AD STEPHENS DIRECTIVE Health Care Decision (hx) 06/06/2021 AD STEPHENS DIRECTIVE Health Care Decision (hx) 06/06/2021 AD STEPHENS DIRECTIVE Health Care Decision (hx) 06/06/2021 AD STEPHENS DIRECTIVE Health Care Decision (hx) 06/06/2021 AD STEPHENS DIRECTIVE Health Care Decision (hx) 06/06/2021 AD STEPHENS DIRECTIVE Health Care Decision (hx) 06/06/2021 AD STEPHENS DIRECTIVE Health Care Decision (hx) 06/06/2021 AD STEPHENS DIRECTIVE Health Care Decision (hx) 06/06/2021 AD STEPHENS DIRECTIVE Health Care Decision (hx) 06/06/2021 AD STEPHENS DIRECTIVE Health Care Decision (hx) 06/06/2021 AD STEPHENS DIRECTIVE Health Care Decision (hx) 01/12/2021 AD STEPHENS DIRECTIVE Health Care Decision (hx) 01/12/2021 AD STEPHENS DIRECTIVE Health Care Decision (hx) 01/12/2021 AD STEPHENS DIRECTIVE Health Care Decision (hx) 01/12/2021 AD STEPHENS DIRECTIVE Health Care Decision (hx) 01/12/2021 AD STEPHENS DIRECTIVE Health Care Decision (hx) 01/12/2021 AD STEPHENS DIRECTIVE Health Care Decision (hx) 01/12/2021 AD STEPHENS DIRECTIVE Health Care Decision (hx) 01/12/2021 AD STEPHENS DIRECTIVE Health Care Decision (hx) 01/12/2021 AD STEPHENS DIRECTIVE Health Care Decision (hx) 01/12/2021 AD STEPHENS DIRECTIVE Health Care Decision (hx) 01/12/2021 AD STEPHENS DIRECTIVE Health Care Decision (hx) 01/12/2021 AD STEPHENS DIRECTIVE Health Care Decision (hx) 01/12/2021 AD STEPHENS DIRECTIVE Health Care Decision (hx) 01/12/2021 AD STEPHENS DIRECTIVE Health Care Decision (hx) 01/12/2021 AD STEPHENS DIRECTIVE Health Care Decision (hx) 01/12/2021 AD STEPHENS DIRECTIVE Health Care Decision (hx) 01/12/2021 AD STEPHENS DIRECTIVE Health Care Decision (hx) 01/12/2021 AD STEPHENS DIRECTIVE Health Care Decision (hx) 01/12/2021 AD STEPHENS DIRECTIVE Health Care Decision (hx) 01/12/2021 AD STEPHENS DIRECTIVE Health Care Decision (hx) 01/12/2021 AD STEPHENS DIRECTIVE Health Care Decision (hx) 01/12/2021 AD STEPHENS DIRECTIVE Health Care Decision (hx) 01/12/2021 AD STEPHENS DIRECTIVE Health Care Decision (hx) 01/12/2021 AD STEPHENS DIRECTIVE Health Care Decision (hx) 01/12/2021 AD STEPHENS DIRECTIVE Health Care Decision (hx) 01/12/2021 AD STEPHENS DIRECTIVE Health Care Decision (hx) 01/12/2021 AD STEPHENS DIRECTIVE Health Care Decision (hx) 01/12/2021 AD STEPHENS DIRECTIVE Health Care Decision (hx) 01/12/2021 AD STEPHENS DIRECTIVE Health Care Decision (hx) 01/12/2021 AD STEPHENS DIRECTIVE Health Care Decision (hx) 01/12/2021 AD STEPHENS DIRECTIVE Health Care Decision (hx) 01/12/2021 AD STEPHENS DIRECTIVE Health Care Decision (hx) 01/12/2021 AD STEPHENS DIRECTIVE Health Care Decision (hx) 01/12/2021 AD STEPHENS DIRECTIVE Health Care Decision (hx) 01/12/2021 AD STEPHENS DIRECTIVE Health Care Decision (hx) 01/12/2021 AD STEPHENS DIRECTIVE Health Care Decision (hx) 01/12/2021 AD STEPHENS DIRECTIVE Health Care Decision (hx) 01/12/2021 AD STEPHENS DIRECTIVE Health Care Decision (hx) 01/12/2021 AD STEPHENS DIRECTIVE Health Care Decision (hx) 01/12/2021 AD STEPHENS DIRECTIVE Health Care Decision (hx) 01/12/2021 AD STEPHENS DIRECTIVE Health Care Decision (hx) 01/12/2021 AD STEPHENS DIRECTIVE Health Care Decision (hx) 01/12/2021 AD STEPHENS DIRECTIVE Health Care Decision (hx) 01/12/2021 AD STEPHENS DIRECTIVE Health Care Decision (hx) 01/12/2021 AD STEPHENS DIRECTIVE Health Care Decision (hx) 01/05/2021 AD STEPHENS DIRECTIVE Care Teams Marine Reporter Relationship Specialty Start Date End Date Krys Serrano MD [address] [place] [phone] PCP - General Internal Medicine 07/13/24
== END 2024-10-07 11:47 | disposition home or self-care (01) ==
PROVIDERS: PCP Internal Medicine; Visit Provider Dietitian, Registered
DX: R63.6 Underweight (principal); G80.9 Cerebral palsy, unspecified

== ENCOUNTER → 2024-10-07 10:39 | Outpatient (BNVA) | payer MEDICARE, MEDICAID, SELFPAY | PROVIDERS: PCP Internal Medicine; Visit Provider Dietitian, Registered | DX: R63.6 Underweight (principal); G80.9 Cerebral palsy, unspecified; Z71.3 Dietary counseling and surveillance; Z97.8 Presence of other specified devices | CPT/HCPCS: 97803 ==

== ENCOUNTER 2025-05-17 11:08 | Outpatient (AMB) | payer MEDICARE, MEDICAID, SELFPAY ==
--- NOTE | 2025-05-17 11:19 | A.OFFVIS_ITS ---
VS Expanded 05/17/25 11:20 Height 5 ft 6 in Weight 113 lb BMI 18.2 Intake Visit Reasons: cerebral palsy,underweight , enteral feeding Medication List - Last Reconciled 05/17/[address], LDN albuterol sulfate 1.25 mg inhalation TID PRN baclofen 5 mg feeding tube TID cholecalciferol (vitamin D3) 1,000 units feeding tube DAILY docusate sodium 100 mg feeding tube TID mecobalamin (vitamin B12) 1,000 mcg PO DAILY omeprazole-sodium bicarbonate 40-1,680 mg 1 packet feeding tube DAILY polyethylene glycol 3350 (Miralax) 17 grams feeding tube DAILY potassium chloride 20 mEq feeding tube DAILY Nutrition Presentation Details: Pt presents for MNT f/u for nutrition tolerance and monitor weight Pt presents with home staff during this appt Pt has cerebral palsy, non ambulatory, non verbal, is NPO d/t aspiration , and gets nutritional feeds via Jtube and medications via Gtube. Pt currently on: Peptamen 1.5 @75 ml/hr for 20 hr via Jtube, + 2000 ml water/day This provides 2250 calories/day (1500 ML/D), 102 g of protein, 2040 ml of water per day, no fiber. Pt is gradually increasing weight since he was switched to peptamen 1.5 with gradual increase in feeding rate. Per staff, pt is tolerating feedings, no vomiting, no diarrhea. (Pt was previously on nutren 2.0 with hx of Aminata -Garcia syndrome with GI bleed, severe gastric dysmotility and not tolerating feedings r/t poor absorption) Pt's BMI today at 18.2 (05/2025), gradual increase from 17.9 (09/2024) from 16.6 (11/2023) Staff reports no concerns, Pt having regular bowel movements, no constipation/diarrhea Per medication record Pt on colace and miralax with soft bowel movements) Noted Pt on b12 supplements since 03/2025 no current labs at time of this visit Nutrition Needs Calculation Weight: 113 lb (51 kg) Estimated kcal needs (kcal/day): 2,500 (currently 2250 + 250 to promote weight gain = 2500) Estimated protein needs (gm/day): 77 (1.0-1.5 g/kg BW) Estimated fluid needs (mls/day): 2,040 (as per Mulugeta Marcos) [facility] Medical History (Updated 05/17/25 @ 19:45 by Sandy Talley, RD, LDN) Cerebral palsy Assessment & Plan Assessment & Plan (1) Underweight: Code(s): R63.6 - Underweight Category: Medical Plan: Pt continues in underweight category. Recommend increasing calories by 300 by increasing rate of feeding as follow. Run Peptamen 1.5 feeds at 85 ML X 20 HR (1700 ML/d) Water flushes: 50 ML BEFORE and AFTER feeds Additional water to meet recommended fluids/day: 730 ml additional water throughout the day (can be used for flushing J tube, G- tube and meds via G- tube) Do not exceed 125 ml/hr via Jtube, unless otherwise specified by MD This provides 2550 calories/day (1700 ml/d), 116 g of protein, 2040 ml of water per day , no fiber , with gradual weight gain. Do not check residuals for J-Tube Check for GI tolerance, monitor weight, frequency of bowel movement, symptoms of dehydration Will follow up in 3 months via TV to discuss tolerance, weight progress, call for any questions or concerns prior to appointment. Coding Level of Care Code Nutr Indiv Subseq (20449) Diagnoses Underweight R63.6 Time Spent (min) 30
[2025-05-17 11:20] VITALS: BMI 18.2
--- OUTSIDE RECORDS SUMMARY | 2025-05-17 13:40 | XMS_ITS ---
Author Name [facility] Organization Unknown Care Team Organization Name Specialty Phone Email Start Date End Da [facility] ACO 04/28/2025
--- OUTSIDE RECORDS SUMMARY | 2025-05-17 13:40 | XMS_ITS | Clinical Summary ---
Author Organization [address] Address [address] [place] [phone] Phone Care Team Providers Care Typo Machine Operator Name Role Phone rKys Serrano MD Primary Care Provider [phone] Allergies No known active allergies Medications bisacodyL (DULCOLAX) [address] 1 Suppository rectally as needed (FOR CONSTIPATION OR NO BOWEL MOVEMENT IN 3 DAYS). 02/14/20 22 Active ergocalciferol, vitamin D2, (ERGOCALCIFEROL, VIT D2,, BULK, MISC) Ergocalciferol 200 MCG/ML Solution 1,000 Units by Gastric Tube route daily. GIVE 5 DROPS (1000 UNITS) VIA G-TUBE IN THE MORNING - Gastric Tube 12/17/19 24 Active baclofen (FIRST-BACLOFEN) 5 mg/mL suspension Take 1 mL (5 mg total) by mouth 3 (three) times a day. 05/30/20 23 Active bacitracin 500 unit/gram ointment Wash superficial wound with soap and water. Apply small amount to affected area 2xday prn. Cover with Band-Aid or sterile gauze until healed. 12/16/19 22 Active feeder container (FEEDING TUBES - BAGS MISC) 1 Units by Does not apply route See Admin Instructions. FLUSH FEEDING TUBE EVERY 2 HOURS. 04/05/20 20 Active feeder container (FEEDING TUBES - BAGS MISC) Feeding Tubes - Sets (ENTERALITE INFINITY PUMP SET) Misc 1 Each by Does not apply route continuous. 65 ml per hour for 21 hours 03/09/20 16 Active Oxygen Therapy (O2) gas Inhale 2 L continuously. Oxygen Historical (HISTORICAL OXYGEN) Cont. / Life Supply Active potassium chloride 20 mEq/15 mL solution TAKE 15ML VIA G-TUBE DAILY 450 mL 4 01/09/20 25 Active nystatin (MYCOSTATIN) ointment APPLY SMALL AMOUNT TOPICALLY TWICE DAILY NEEDED TO CRACKLY/ PEELING SKIN AROUND TOE AND GROIN AREA. 30 g 01/28/20 25 Active ergocalciferol (CALCIDOL, VIT D-2,) 200 mcg/mL (8,000 unit/mL) drops Take 0.5 mL (4,000 Units total) via g-tube 1 (one) time each day. 60 mL 02/10/20 25 Active clotrimazole (LOTRIMIN) 1 % cream APPLY A THIN FILM TOPICALLY TWICE DAILY AROUND G-TUBE SITE 30 g 3 02/25/20 25 Active omeprazole 2 mg/mL in sodium bicarbonate 20 ml via G tube once daily 600 mL 4 02/26/20 25 Active aluminum chloride (Drysol Dab-O-Matic) 20 % external solution APPLY TOPICALLY TO SOLES OF FEET THREE TIMES A WEEK. 35 mL 3 03/16/20 25 Active docusate (COLACE) 50 mg/5 mL liquid TAKE 10 ML VIA G TUBE 3 TIMES DAILY NEEDED FOR CONSTIPATION. HOLD WITH LOOSE STOOLS. 900 mL 3 03/16/20 25 Active sodium phosphate (Khnta-Pz-Iee Enema) 19-7 gram/[address] 1 Enema rectally as needed (If no bowel movement for 4 days, or if no results after 24 hours from Bisacodyl suppository. If no BM x 24 hours after administering enema, notify ) 135 mL 03/16/20 25 Active polyethylene glycol (MIRALAX) 17 gram packet Take 17 g by mouth 1 (one) time each day. 17 gram dissolved in water via G tube daily. Hold if he has Diarrhea or more than 1 stool a day. . 527 g 3 03/22/20 25 Active neomycin-bacitra cnZn-polymyxnB 3.5-500-10,000 jh-qanp-ndzf ointment Apply 1 Film topically 2 times daily as needed (as needed) 28.4 g 03/22/20 25 Active carbamide peroxide (Ear Drops, carbamide peroxide,) 6.5 % otic solution Administer 5 drops into each ear 2 (two) times a day. INSTILL 4 DROPS INTO AFFECTED EARS TWICE DAILY NEEDED FOR FOUR DAYS THEN FLUSH EARS WITH WATER 15 mL 03/22/20 25 Active acetaminophen (TYLENOL) 160 mg/5 mL liquid 20 mL by Gastric Tube route every 8 hours as needed for Fever or Pain. (temp 100.2 or higher, no more than 3250 mg/24 hrs. notify nursing if temp over 100 despite use of antipyretic). - Gastric Tube 120 mL 3 03/24/20 25 Active cyanocobalamin, vitamin B-12, 1,000 mcg/15 mL liquid Take 1,000 mcg via g-tube 1 (one) time each day. 354 mL 3 03/24/20 25 Active denosumab (Prolia) 60 mg/mL syringe syringe Inject 1 mL (60 mg total) under the skin 1 (one) time for 1 dose. 1 mL 03/25/20 25 Active metoclopramide (REGLAN) 5 mg/5 mL solution TAKE 5ML VIA G-TUBE THREE TIMES A DAY NEEDED FOR NAUSEA AND VOMITING 450 mL 04/02/20 25 Active senna (SENOKOT) 8.8 mg/5 mL syrup TAKE 15ML VIA G-TUBE TWICE A DAY 237 mL 2 04/14/20 25 Active albuterol 2.5 mg /3 mL (0.083 %) nebulizer solutionIndicati ons:Bronchopulmo nary dysplasia (CMS/HCC V28),Mild persistent asthma without complication Take 3 mL (2.5 mg total) by nebulization 3 (three) times a day. May also take 3 mL (2.5 mg total) every 8 (eight) hours if needed for wheezing or shortness of breath. Give 1 vial by nebulization three time per day morning, day and bedtime and use every 8 hours as needed for wheezes and shortness of breath.. 375 mL 5 05/11/20 25 026 Active guaiFENesin (Cristal-Tussin) 100 mg/5 mL liquid TAKE 10ML (200MG) VIA G-TUBE EVERY 4 HOURS NEEDED FOR COUGH. 420 mL 05/13/20 25 Active guaiFENesin 200 mg/5 mL liquid 5 mL by Gastrostomy Tube route every 4 hours as needed for Other (cough). - Gastrostomy Tube 12/17/19 24 025 Discontin ued(Dupli che order) albuterol 2.5 mg /3 mL (0.083 %) nebulizer solutionIndicati ons:Bronchopulmo nary dysplasia ([facility] V28),Mild persistent asthma without complication Take 3 mL (2.5 mg total) by nebulization 3 (three) times a day. May also take 3 mL (2.5 mg total) every 8 (eight) hours if needed for wheezing or shortness of breath. Give 1 vial by nebulization three time per day morning, day and bedtime and use every 8 hours as needed for wheezes and shortness of breath.. 375 mL 5 03/18/20 25 025 Discontin ued(Reord er) albuterol 2.5 mg /3 mL (0.083 %) nebulizer solutionIndicati ons:Bronchopulmo nary dysplasia ([facility] V28),Mild persistent asthma without complication Take 3 mL (2.5 mg total) by nebulization 3 (three) times a day. May also take 3 mL (2.5 mg total) every 8 (eight) hours if needed for wheezing or shortness of breath. Give 1 vial by nebulization three time per day morning, day and bedtime and use every 8 hours as needed for wheezes and shortness of breath.. 375 mL 5 05/07/20 25 025 Discontin ued(Reord er) Active Problems Problem Noted Date Diagnosed Date Vitamin B12 deficiency 01/12/2025 Assessment & Plan (01/12/2025 1:13 PM EDT): Start 1000 mcg daily vitamin b12 supplementation Jejunostomy tube in situ ([facility] V24, 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 Pulmonary nodule 10/16/2018 DNR (do not resuscitate) 09/25/2018 Chronic hypoxemic respirator y failure ([facility] V24, 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 V28) 03/13/2006 Encounters Date Type Department Care Team Description 04/14/2025 Telephone Pulmonolgy - [facility] [address] [facility] [address] [place] [phone] Ginger Santana NP 04/09/2025 Telephone Adult Medicine [address] [phone] Krys Serrano MD 03/31/2025 Telephone Adult Medicine [address] [phone] Krys Serrano MD 03/30/2025 Telephone Adult Medicine [address] [phone] Krys Serrano MD 03/30/2025 Telephone Adult Medicine [address], [place] [phone] Krys Serrano MD 03/24/2025 Telephone Adult Medicine [address] [phone] Lady Echevarria [place] 03/22/2025 Telephone Pulmonolgy - [place] [address] [phone] Ginger Santana, ARABELLA 03/19/2025 Telephone Adult Medicine [address] [phone] Krys Serrano MD 03/19/2025 Telephone Pulmonolgy - [place] [address] [phone] Ginger Santana, ARABELLA 03/19/2025 Telephone Adult Medicine [address] [phone] Krys Serrano MD 03/18/2025 Telephone Adult Medicine [address] [phone] Lady Echevarria [place] 03/17/2025 Telephone Pulmonolgy - [facility] [address] [phone] Ginger Santana, BENCH MOLDER APPRENTICE 03/16/2025 Telephone Pulmonolgy - [facility] [address] [phone] Ginger Santana, BENCH MOLDER APPRENTICE 03/15/2025 Telephone Adult Medicine [address] [phone] Krys Serrano MD 02/22/2025 Telephone Adult Medicine [address] [phone] Krys Serrano MD 02/19/2025 Telephone Adult Medicine [address] [phone] Krys Serrano MD from Last 3 Months Immunizations Name Administration Dates Next Due [id number] (Pentacel) 2mo to less than 5yo 05/10/2006,12/08/2005,11/07/2005 Hib (HbOC) 05/10/2006,12/08/2005,11/07/2005 Influenza Quadravalent, MDCK , 0.5ml, preservative free (Flucelvax) 6mo and older 08/06/2023,09/26/2021,06/22/2020 Influenza Quadravalent, MDCK , 0.5ml, with preservative (Flucelvax) 6mo and older 06/29/2019,06/19/2017 Influenza Quadrivalent, 0.5m l, preservative free (Fluarix; FluLaval; Fluzone) ages 6mo and older (Afluria) 3yo and older 09/09/2023,09/27/2022,08/15/2022,11/15,06/29/2018 Influenza trivalent, 0.5mL ( Fluzone High-dose) 65yo and older 06/12/2016,05/25/2010,06/10/2009 Influenza trivalent, MDCK, 0 .5mL, preservative free (Flucelvax) 6mo and older 10/26/2024 Influenza trivalent, with pr eservative (Fluzone; Afluria) 6mo and older 09/26/2021,11/15/2020,06/22/2020,06/29,06/29/2018,06/19/2017,06/30/2008 ,08/05/2007 MMR, measles mumps and rubel la Live (Priorix; M-M-R II) 12mo and older 03/19/1996 Meningococcal Polysaccharide 11/07/2002 Moderna SARS-CoV-2 COVID-19, mRNA, LNP-S, preservative free 11/27/2020,11/06/2020 PPD Test 04/29/2019, 6,03/28/2015,06/07,09/27/2011,08/24/2010,07/22/2009 ,06/17/2008,03/18/2007,11/14/2005 Pneumococcal polysaccharide 23 valent (Pneumovax 23) 2yo and older 05/28/2019,08/18/2014,02/09/2009,12/03 Td Tetanus diptheria (Tdvax) 7yo and older 04/11/2017 Td, Unspecified 04/11/2017 Tdap Tetanus diptheria acell ular pertussis (Boostrix; Adacel) 7yo and older 04/11/2017,03/18/2007 Surgical History Surgery Date Site/Laterality Comments OTHER SURGICAL HISTORY PROCEDURE: GASTROSTOMY TUBE W/RING EACH UPPER GASTROINTESTINAL ENDOSCOPY 04/2019 PROCEDURE: [place] UPPER GI ENDOSCOPY PERFORMED; COMMENT: [facility]; upper GI bleeding, gastric ulcer adjacent to gastrostomy tube. CHOLECYSTECTOMY 01/03/2021 N/A PROCEDURE: [place] LAPAROSCOPY SURG CHOLECYSTECTOMY; COMMENT: Jacquie Serna (biliary dyskinesia, chronic cholecystitis, cholelithiasis) OTHER SURGICAL HISTORY 01/03/2021 N/A PROCEDURE: [place] LAPAROSCOPY SURGICAL JEJUNOSTOMY; COMMENT: placement of feeding jejunostomy & replacement of gastrostomy tube - Jacquie Serna Medical History Medical History Date Comments Gastrointestinal tube in sit u ([facility] V24, [facility] V28) 04/02/2016 DX:Gastrointestinal tube in situ (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 DX:Gallbladd er anomaly Family History Medical History Relation Name Comments Diabetes Father HTN, Lipids Diabetes Mother HTN, Lipids Relation Name Status Comments Father Alive very little det ail on chart,not sure Mother Alive Social History Tobacco Use Types Packs/Day Years Used Date Smoking Tobacco: Never Smokeless Tobacco: Never Alcohol Use Standard Drinks/Week Comments No 0 (1 standard drink = 0.6 oz pur e alcohol) Sex and Gender Information Value Date Recorded Sex Assigned at Not on file Legal Sex Male 3:50 AM EST Gender Identity Not on file Sexual Orientation Not on file Obstetrics History Last Filed Vital Signs Vital Sign Reading Time Taken Comments Blood Pressure 128/80 01/19/2025 10:47 AM EDT Pulse 86 01/19/2025 10:47 AM EDT Temperature 36.4 C (97.6 F) 01/19/2025 10:47 AM EDT Respiratory Rate 14 01/19/2025 10:47 AM EDT Oxygen Saturation 98% 01/19/2025 10:47 AM EDT 2 liter Inhaled Oxygen Concentration - - Weight 50.8 kg (112 lb) 01/19/2025 10:47 AM EDT Height 167.6 cm (5' 6 ) 01/19/2025 10:47 AM EDT Body Mass Index 18.08 01/19/2025 10:47 AM EDT Plan of Treatment Upcoming Encounters Date Type Department Care Team (Late st Contact Info) Description 05/18/2025 11:00 AM EDT Office Visit Endocrinology [address] [phone] Laura Romano MD [address] [place] [address] 06/08/2025 1:30 PM EDT Office Visit Adult Medicine [address] [phone] Krys Serrano MD [address] [place], [place] 08/04/2025 10:35 AM EST Office Visit Pulmonolgy [facility] [address] [place] [phone] Ginger Santana, ARABELLA [address] [place] [phone] Health Maintenance Due Date Last Done Comments Hepatitis B Vaccines (1 of 3 - 19+ 3-dose series) 2002 IPV Vaccines (3 of 3 - Adult catch-up series) 11/07/2006 05/10/2006, 12/08/2005, 11/07/2005 Pneumococcal Vaccine: Pediatrics (0 to 5 Years) and At-Risk Patients (6 to 49 Years) (2 of 2 - PCV) 05/28/2020 05/28/2019, 08/18/2014, 02/09/2009, Additional history exists HIV Screening 08/18/2022 Medicare Annual Wellness Visit 08/18/2022 Social Influencers of Health Screening 08/18/2022 Depression Screening 09/09/2024 Influenza Vaccine (#1) 2025 , 09/09/2023, 08/06/2023, Additional history exists DTaP,Tdap,and Td Vaccines (8 - Td or Tdap) 04/11/2027 04/11/2017, 04/11/2017, 04/11/2017, Additional history exists Cholesterol Screening (Lipid Panel) 01/19/2030 01/19/2025, 08/14/2023 MMR Vaccines Completed 03/19/1996 Meningococcal ACWY Vaccine Aged Out 11/07/2002 N o longer eligible based on patient's age to complete this topic HIB Vaccines Aged Out 05/10/2006, 09/2005, 12/08/2005, Additional history exists No longer eligible based on patient's age to complete this topic Hepatitis C Screening Completed 10/17/2017 COVID-19 Vaccine Completed 10/26/2024, 06/2024, 09/27/2022, Additional history exists HPV Vaccines Aged Out No longer eligi ble based on patient's age to complete this topic Hepatitis A Vaccines Aged Out No long er eligible based on patient's age to complete this topic Meningococcal B Vaccine Aged Out No l onger eligible based on patient's age to complete this topic RSV Immunization Patients Under 20 months Aged Out No longer eligible based on patient's age to complete this topic Varicella Vaccines Aged Out No longer eligible based on patient's age to complete this topic Procedures Procedure Name Priority Date/Time Associated Diagnosis Comments LIPID PANEL WITH REFLEX TO DIRECT LDL Routine 01/19/2025 11:25 AM EDT PE (physical exam), annual HEPATITIS C SCREENING Routine 10/17/2017 from Last 3 Months or Most Recently Relevant to Health Maintenance Results * Lipid panel with reflex to direct LDL (01/19/2025 11:25 AM EDT) Cholesterol 141 0 - 200 mg/dL LAB CHEMISTRY METHOD 01/19/2025 3:24 PM EDT [facility] Triglycerides 95 0 - 150 mg/dL LAB CHEMISTRY METHOD 01/19/2025 3:24 PM EDT [facility] HDL 56 >=40 mg/dL LAB CHEMISTRY METHOD 01/19/2025 3:24 PM EDT [facility] LDL Calculated 66 0 - 100 mg/dL LAB CHEMISTRY METHOD 01/19/2025 3:24 PM EDT [facility] VLDL Cholesterol Dereck 19 mg/dL LAB CHEMISTRY METHOD 01/19/2025 3:24 PM EDT [facility] Non HDL Chol. (LDL+VLDL) 85 <145 mg/dL LAB CHEMISTRY METHOD 01/19/2025 3:24 PM EDT [facility] Chol/HDL Ratio 2.5 0.0 - 4.4 LAB CHEMISTRY METHOD 01/19/2025 3:24 PM EDT [facility] Blood Venous blood specimen / Unknown Venipuncture / Unknown 01/19/2025 11:25 AM EDT 01/19/2025 11:25 AM EDT Krys Serrano MD LAB BLOOD ORDERABLES Final Resul t [facility] [address] [place] [address], * Hepatitis C Screening (10/17/2017) [facility] Hepatitis C Screening abstracted Historical Provider HEALTH MAINTENANCE Final Result from Last 3 Months or Most Recently Relevant to Health Maintenance Insurance MEDICARE [place]ICAID [place] Advance Directives Documents on File Type Date Recorded Patient Ring Stamper Expl anation Health Care Decision (hx) 06/06/2021 [...] Care Decision (hx) 01/05/2021 AD STEPHENS DIRECTIVE * No CPR/Do Not Intubate (Latest Code Status on File) Date Activated Date Inactivated Comments 12/16/2024 5:53 PM This code statu s was ascertained in the following way: Code status discussion: per living will or healthcare instructions/MOLST form To update the patient's code status, place a code status order. Do not modify or discontinue any currently active code status orders. Care Teams Typo Machine Operator Relationship Specialty Start Date End Date Krys Serrano MD [address] [place] [phone] PCP - General Internal Medicine 07/13/24
== END 2025-05-17 11:38 | disposition home or self-care (01) ==
LOC: HO.ENCR 11:08
PROVIDERS: PCP Internal Medicine; Visit Provider Dietitian, Registered
DX: R63.6 Underweight (principal)

== ENCOUNTER → 2025-05-17 11:08 | Outpatient (BNVA) | payer MEDICARE, MEDICAID, SELFPAY | PROVIDERS: PCP Internal Medicine; Visit Provider Dietitian, Registered | DX: R63.6 Underweight (principal); G80.9 Cerebral palsy, unspecified; Z71.3 Dietary counseling and surveillance; Z97.8 Presence of other specified devices | CPT/HCPCS: 97803 ==

== ENCOUNTER 2025-08-16 10:53 | Outpatient (AMB) | payer MEDICARE, MEDICAID, SELFPAY ==
--- NOTE | 2025-08-16 11:07 | MHC.AMNUTRGE ---
VS Expanded 08/16/25 13:33 Height 5 ft 6 in Weight 113 lb BMI 18.2 Intake Visit Reasons: cerebral palsy,underweight , enteral feeding Medication List - Last Reconciled 08/16/[address], LDN albuterol sulfate 1.25 mg inhalation TID PRN baclofen 5 mg feeding tube TID cholecalciferol (vitamin D3) 1,000 units feeding tube DAILY docusate sodium 100 mg feeding tube TID metoclopramide HCl (Reglan) 5 mg PO QIDACHS omeprazole-sodium bicarbonate 40-1,680 mg 1 packet feeding tube DAILY polyethylene glycol 3350 (Miralax) 17 grams feeding tube DAILY potassium chloride 20 mEq feeding tube DAILY Nutrition Presentation Details: Pt presents in person for MNT f/u for underweight. Pt presents with staff from [facility]. Pt has cerebral palsy , is non ambulatory. Pt is NPO and continues on Peptamen 1.5 @ 75 ML per hour for 20 hours/day via J- tube. and additional 885 ml water distributed throughout the day via Jtube, plus additional water via Gtube with meds. Staff reports most recent weight at 113 lbs in Aug, 2025. No changes in feeding rates have been implemented. Staff reports Pt will have a new PCP, new appt pending for 08/18/25, provider is from [facility]. Nurse wants to discuss hydration recommendations with PCP. Assessment Assessment details: Recommend Increasing total caloric intake due to underweight with BMI at 18.2 Nutrition Needs Calculation Weight: 113 lb (51 kg) Estimated kcal needs (kcal/day): 2,500 (current caloric intake :2250 + 250 to promote weight gain= 2500) Estimated protein needs (gm/day): 77 (1.0-1.5 g/kw BW) Estimated fluid needs (mls/day): 2,040 (as per Mulugeta Marcos ) [facility], [facility] Medical History (Updated 05/17/25 @ 19:[address], LDN) Cerebral palsy Assessment & Plan Assessment & Plan (1) Underweight: Code(s): R63.6 - Underweight Category: Medical Plan: Pt continues in underweight category. Recommend increasing calories by 300 by increasing rate of feeding as follow. Run Peptamen 1.5 feeds at 85 ML X 20 HR (1700 ML/d) Water flushes: 50 ML BEFORE and AFTER feeds Additional water to meet recommended fluids/day: 630 ml additional water throughout the day (can be used for flushing J tube, G- tube and meds via G-tube) Do not exceed 125 ml/hr via Jtube, unless otherwise specified by MD This provides 2550 calories/day (1700 ml/d), 116 g of protein, 2040 ml of water per day , no fiber , to promote gradual weight gain. Working towards goal wt of 120-122 lbs Do not check residuals for J-Tube Check for GI tolerance, monitor weight weekly RECOMMEND for PCP to asses nutritional deficiencies: monitor vit B12, B6, Zinc, Copper, Selenium Will follow up in 3 months via TV to discuss tolerance, weight progress, call for any questions or concerns prior to appointment. Coding Level of Care Code Nutr Indiv Subseq (38566) Diagnoses Underweight R63.6 Time Spent (min) 30
[2025-08-16 13:33] VITALS: BMI 18.2
== END 2025-08-16 11:34 | disposition home or self-care (01) ==
LOC: HO.ENCR 10:54
PROVIDERS: PCP Internal Medicine; Visit Provider Dietitian, Registered
DX: R63.6 Underweight (principal)

== ENCOUNTER → 2025-08-16 10:53 | Outpatient (BNVA) | payer MEDICARE, MEDICAID, SELFPAY | PROVIDERS: PCP Internal Medicine; Visit Provider Dietitian, Registered | DX: Z71.3 Dietary counseling and surveillance (principal); R63.6 Underweight | CPT/HCPCS: 97803 ==